=== PATIENT | female | born 1980 | race American Indian/Alaskan Native ===

== ENCOUNTER 2019-02-10 22:37 | Emergency (ER) | payer MEDICARE ==
[2019-02-10 22:47] VITALS: BP 121/103
[2019-02-10 23:10] LABS: Hematocrit 39.9 % (30.3-42.9); Hemoglobin 13.3 gm/dl (10.1-14.3); Mean Corpuscular HGB Conc 33 % (30-34); Mean Corpuscular Volume 99 fl (79-97); Platelet Count 200 K/mm3 (140-440); Red Blood Count 4.05 M/mm3 (3.65-5.03); Red Cell Distribution Width 15.3 % (13.2-15.2)
[2019-02-10 23:30] LABS: Alanine Aminotransferase 28 units/L (7-56); Albumin 4.5 g/dL (3.9-5); BUN/Creatinine Ratio 13; Blood Urea Nitrogen 9 mg/dL (7-17); Calcium 9.6 mg/dL (8.4-10.2); Hemolysis Index 9
[2019-02-11 01:32] LABS: RBC Morphology Normal; Total Cells Counted 100
[2019-02-11 01:36] LABS: Bacteria,Urine 1+ /HPF (Negative); Bilirubin,Urine NEG (Negative); Blood,Urine NEG (Negative); Color,Urine Yellow (Yellow); Protein,Urine <15 mg/dL mg/dL (Negative); Urobilinogen,Urine < 2.0 mg/dL (<2.0)
--- NOTE | 2019-02-11 02:35 | Cat Scan Report ---
CT abdomen pelvis wo con INDICATION / CLINICAL INFORMATION: Lower abdominal pain and nausea. Bilateral flank pain.. TECHNIQUE: All CT scans at this location are performed using CT dose reduction for ALARA by means of automated e xposure control. COMPARISON: None available. FINDINGS: ABDOMEN: The stomach is mildly distended and fluid-filled. There is a 1.7 cm simple cyst-appearing le tim in the right lobe of the liver. There are a couple of small accessory spleens. The gallbladder, bile ducts, pancreas, adrenal glands, and kidneys demonstrate no significant abnormality. No adenopat hy is seen. The lung bases are clear. There are bilateral breast implants. PELVIS: The uterus is enlarged and contains multiple fibroids, the largest of which measures approxim ately 6.9 cm. The ovaries are not well seen. No free fluid is identified. A normal appendix is presen t and there is no evidence of diverticulitis. The distal ureters and urinary bladder are normal. I do not identify a hernia. No acute osseous abnormality is seen area IMPRESSION: 1. Enlarged uterus containing multiple fibroids. 2. The stomach is mildly distended and filled with fluid, probably related to recent fluid intake. 3. Small simple cyst-appearing lesion in the liver. 4. No evidence of urinary tract calculus or hydronephrosis. Signer Name: Edwin Edmonds MD Signed: 02/11/2019 2:30 AM Workstation Name: [id number]
--- NOTE | 2019-02-11 02:35 | Emergency Department Report ---
ED Abdominal Pain HPI - General Chief Complaint: Abdominal Pain Stated Complaint: SHOOTING PAIN IN ABD AND SIDES Time Seen by Provider: 02/11/19 01:29 Source: patient Mode of arrival: Ambulatory Limitations: No Limitations - History of Present Illness Initial Comments: Patient is a 38-year-old female presents the emergency room with complaints of right flank pain and suprapubic abdominal pain that began 2 weeks ago. States she also has vaginal discharge and vaginal irritation. She denies any vomiting, diarrhea, fever, urinary symptoms. She denies any past medical history or allergies to medications. Last mental cycle was February 04. - Related Data Previous Rx's Medication Instructions Recorded Last Taken Type metroNIDAZOLE [Flagyl] 500 mg PO BID 7 Days #14 tab 02/11/19 Unknown Rx Allergies Allergy/AdvReac Type Severity Reaction Status Date / Time No Known Allergies Allergy Unverified 02/10/19 22:42 ED Review of Systems ROS: Stated complaint: SHOOTING PAIN IN ABD AND SIDES Other details as noted in HPI Comment: All other systems reviewed and negative ED Past Medical Hx - Past Medical History Previous Medical History?: No - Surgical History Past Surgical History?: No - Social History Smoking Status: Current Every Day Smoker Substance Use Type: Marijuana - Medications Home Medications: Home Medications Medication Instructions Recorded Confirmed Last Taken Type metroNIDAZOLE [Flagyl] 500 mg PO BID 7 Days #14 tab 02/11/19 Unknown Rx ED Physical Exam - General Limitations: No Limitations General appearance: alert, in no apparent distress - Head Head exam: Present: atraumatic, normocephalic - ENT ENT exam: Present: mucous membranes moist - Respiratory Respiratory exam: Present: normal lung sounds bilaterally. Absent: respiratory distress, wheezes, rales, rhonchi, stridor, chest wall tenderness, accessory muscle use, decreased breath sounds, prolonged expiratory - Cardiovascular Cardiovascular Exam: Present: regular rate, normal rhythm, normal heart sounds. Absent: systolic murmur, diastolic murmur, rubs, gallop - GI/Abdominal GI/Abdominal exam: Present: soft, normal bowel sounds. Absent: distended, tenderness, guarding, rebound, rigid - External exam: Present: normal external exam. Absent: erythema, swelling, lesions, lacerations, ecchymosis, bleeding Speculum exam: Present: vaginal discharge (clear), cervical discharge (clear), other (tour bus driver/guide: Jui-carrie, RN). Absent: vaginal bleeding, foreign body, tissue Bi-manual exam: Present: normal bi-manual exam, uterine enlargement. Absent: cervical motion tendernes, adnexal tenderness, adnexal mass, uterine tenderness - Back Exam Back exam: Present: CVA tenderness (R) (mild) - Neurological Exam Neurological exam: Present: alert, oriented X3 - Psychiatric Psychiatric exam: Present: normal affect, normal mood - Skin Skin exam: Present: warm, dry, intact ED Course Vital Signs 02/10/19 02/11/19 22:44 03:40 Temperature 98.4 F Pulse Rate 61 77 Respiratory 12 16 Rate Blood Pressure 121/103 O2 Sat by Pulse 99 99 Oximetry ED Medical Decision Making - Lab Data Result diagrams: 02/10/19 22:59 02/10/19 22:59 Lab Results 02/10/19 02/10/19 02/10/19 Range/Units 22:59 22:59 22:59 WBC 3.2 L (4.5-11.0) K/mm3 RBC 4.05 (3.65-5.03) M/mm3 Hgb 13.3 (10.1-14.3) gm/dl Hct 39.9 (30.3-42.9) % MCV 99 H (79-97) fl MCH 33 H (28-32) pg MCHC 33 (30-34) % RDW 15.3 H (13.2-15.2) % Plt Count 200 (140-440) K/mm3 Add Manual Diff Complete Total Counted 100 Seg Neutrophils % [place] Seg Neuts % (Manual) 33.0 L (40.0-70.0) % Band Neutrophils % 0 % Lymphocytes % (Manual) 53.0 H (13.4-35.0) % Reactive Lymphs % (Man) 0 % Monocytes % (Manual) 11.0 H (0.0-7.3) % Eosinophils % (Manual) 2.0 (0.0-4.3) % Basophils % (Manual) 1.0 (0.0-1.8) % Metamyelocytes % 0 % Myelocytes % 0 % Promyelocytes % 0 % Blast Cells % 0 % Nucleated RBC % Not Reportable Seg Neutrophils # Man 1.1 L (1.8-7.7) K/mm3 Band Neutrophils # 0.0 K/mm3 Lymphocytes # (Manual) 1.7 (1.2-5.4) K/mm3 Abs React Lymphs (Man) 0.0 K/mm3 Monocytes # (Manual) 0.4 (0.0-0.8) K/mm3 Eosinophils # (Manual) 0.1 (0.0-0.4) K/mm3 Basophils # (Manual) 0.0 (0.0-0.1) K/mm3 Metamyelocytes # 0.0 K/mm3 Myelocytes # 0.0 K/mm3 Promyelocytes # 0.0 K/mm3 Blast Cells # 0.0 K/mm3 WBC Morphology Not Reportable Hypersegmented Neuts Not Reportable Hyposegmented Neuts Not Reportable Hypogranular Neuts Not Reportable Smudge Cells Not Reportable Toxic Granulation Not Reportable Toxic Vacuolation Not Reportable Dohle Bodies Not Reportable Pelger-Huet Anomaly Not Reportable Ken Rods Not Reportable Platelet Estimate Not Reportable Clumped Platelets Not Reportable Plt Clumps, EDTA Not Reportable Large Platelets Not Reportable Giant Platelets Not Reportable Platelet Satelliting Not Reportable Plt Morphology Comment Not Reportable RBC Morphology Normal Dimorphic RBCs Not Reportable Polychromasia Not Reportable Hypochromasia Not Reportable Poikilocytosis Not Reportable Anisocytosis Not Reportable Microcytosis Not Reportable Macrocytosis Not Reportable Spherocytes Not Reportable Pappenheimer Bodies Not Reportable Sickle Cells Not Reportable Target Cells Not Reportable Tear Drop Cells Not Reportable Ovalocytes Not Reportable Helmet Cells Not Reportable Kang-Laplace Bodies Not Reportable Vanderpool Rings Not Reportable Norborne Cells Not Reportable Bite Cells Not Reportable Crenated Cell Not Reportable Elliptocytes Not Reportable Acanthocytes (Spur) Not Reportable Rouleaux Not Reportable Hemoglobin C Crystals Not Reportable Schistocytes Not Reportable Malaria parasites Not Reportable Guicho Bodies Not Reportable Hem Pathologist Commnt No Sodium 141 (137-145) mmol/L Potassium 4.1 (3.6-5.0) mmol/L Chloride 100.0 (98-107) mmol/L Carbon Dioxide 27 (22-30) mmol/L Anion Gap 18 mmol/L BUN 9 (7-17) mg/dL Creatinine 0.7 (0.7-1.2) mg/dL Estimated GFR > 60 ml/min BUN/Creatinine Ratio 13 % Glucose 94 (65-100) mg/dL Calcium 9.6 (8.4-10.2) mg/dL Total Bilirubin 0.50 (0.1-1.2) mg/dL AST 45 H (5-40) units/L ALT 28 (7-56) units/L Alkaline Phosphatase 39 (35-129) units/L Total Protein 7.7 (6.3-8.2) g/dL Albumin 4.5 (3.9-5) g/dL Albumin/Globulin Ratio 1.4 % HCG, Qual Negative (Negative) Urine Color (Yellow) Urine Turbidity (Clear) Urine pH (5.0-7.0) Ur Specific [place] (1.003-1.030) Urine Protein (Negative) mg/dL Urine Glucose (UA) (Negative) mg/dL Urine Ketones (Negative) mg/dL Urine Blood (Negative) Urine Nitrite (Negative) Urine Bilirubin (Negative) Urine Urobilinogen (<2.0) mg/dL Ur Leukocyte Esterase (Negative) Urine WBC (Auto) (0.0-6.0) /HPF Urine RBC (Auto) (0.0-6.0) /HPF U Epithel Cells (Auto) (0-13.0) /HPF Urine Bacteria (Auto) (Negative) /HPF 02/10/19 Range/Units Unknown WBC (4.5-11.0) K/mm3 RBC (3.65-5.03) M/mm3 Hgb (10.1-14.3) gm/dl Hct (30.3-42.9) % MCV (79-97) fl MCH (28-32) pg MCHC (30-34) % RDW (13.2-15.2) % Plt Count (140-440) K/mm3 Add Manual Diff Total Counted Seg Neutrophils % Seg Neuts % (Manual) (40.0-70.0) % Band Neutrophils % % Lymphocytes % (Manual) (13.4-35.0) % Reactive Lymphs % (Man) % Monocytes % (Manual) (0.0-7.3) % Eosinophils % (Manual) (0.0-4.3) % Basophils % (Manual) (0.0-1.8) % Metamyelocytes % % Myelocytes % % Promyelocytes % % Blast Cells % % Nucleated RBC % Seg Neutrophils # Man (1.8-7.7) K/mm3 Band Neutrophils # K/mm3 Lymphocytes # (Manual) (1.2-5.4) K/mm3 Abs React Lymphs (Man) K/mm3 Monocytes # (Manual) (0.0-0.8) K/mm3 Eosinophils # (Manual) (0.0-0.4) K/mm3 Basophils # (Manual) (0.0-0.1) K/mm3 Metamyelocytes # K/mm3 Myelocytes # K/mm3 Promyelocytes # K/mm3 Blast Cells # K/mm3 WBC Morphology Hypersegmented Neuts Hyposegmented Neuts Hypogranular Neuts Smudge Cells Toxic Granulation Toxic Vacuolation Dohle Bodies Pelger-Huet Anomaly Ken Rods Platelet Estimate Clumped Platelets Plt Clumps, EDTA Large Platelets Giant Platelets Platelet Satelliting Plt Morphology Comment RBC Morphology Dimorphic RBCs Polychromasia Hypochromasia Poikilocytosis Anisocytosis Microcytosis Macrocytosis Spherocytes Pappenheimer Bodies Sickle Cells Target Cells Tear Drop Cells Ovalocytes Helmet Cells Kang-Laplace Bodies Vander[place] Rings Ez Cells Bite Cells Crenated Cell Elliptocytes Acanthocytes (Spur) Rouleaux Hemoglobin C Crystals Schistocytes Malaria parasites Guicho Bodies Hem Pathologist Commnt Sodium (137-145) mmol/L Potassium (3.6-5.0) mmol/L Chloride (98-107) mmol/L Carbon Dioxide (22-30) mmol/L Anion Gap mmol/L BUN (7-17) mg/dL Creatinine (0.7-1.2) mg/dL Estimated GFR ml/min BUN/Creatinine Ratio % Glucose (65-100) mg/dL Calcium (8.4-10.2) mg/dL Total Bilirubin (0.1-1.2) mg/dL AST (5-40) units/L ALT (7-56) units/L Alkaline Phosphatase (35-129) units/L Total Protein (6.3-8.2) g/dL Albumin (3.9-5) g/dL Albumin/Globulin Ratio % HCG, Qual (Negative) Urine Color Yellow (Yellow) Urine Turbidity Clear (Clear) Urine pH 6.0 (5.0-7.0) Ur Specific [place] 1.008 (1.003-1.030) Urine Protein <15 mg/dl (Negative) mg/dL Urine Glucose (UA) Neg (Negative) mg/dL Urine Ketones Tr (Negative) mg/dL Urine Blood Neg (Negative) Urine Nitrite Neg (Negative) Urine Bilirubin Neg (Negative) Urine Urobilinogen < 2.0 (<2.0) mg/dL Ur Leukocyte Esterase Tr (Negative) Urine WBC (Auto) 1.0 (0.0-6.0) /HPF Urine RBC (Auto) 1.0 (0.0-6.0) /HPF U Epithel Cells (Auto) 2.0 (0-13.0) /HPF Urine Bacteria (Auto) 1+ (Negative) /HPF - Radiology Data Radiology results: report reviewed CT abdomen pelvis wo con INDICATION / CLINICAL INFORMATION: Lower abdominal pain and nausea. Bilateral flank pain.. TECHNIQUE: All CT scans at this location are performed using CT dose reduction for ALARA by means of automated exposure control. COMPARISON: None available. FINDINGS: ABDOMEN: The stomach is mildly distended and fluid-filled. There is a 1.7 cm simple cyst-appearing lesion in the right lobe of the liver. There are a couple of small accessory spleens. The gallbladder, bile ducts, pancreas, adrenal glands, and kidneys demonstrate no significant abnormality. No adenopathy is seen. The lung bases are clear. There are bilateral breast implants. PELVIS: The uterus is enlarged and contains multiple fibroids, the largest of which measures approximately 6.9 cm. The ovaries are not well seen. No free fluid is identified. A normal appendix is present and there is no evidence of diverticulitis. The distal ureters and urinary bladder are normal. I do not identify a hernia. No acute osseous abnormality is seen area IMPRESSION: 1. Enlarged uterus containing multiple fibroids. 2. The stomach is mildly distended and filled with fluid, probably related to recent fluid intake. 3. Small simple cyst-appearing lesion in the liver. 4. No evidence of urinary tract calculus or hydronephrosis. Signer Name: Edwin Edmonds MD Signed: 02/11/2019 2:30 AM Workstation Name: [id number] Transcribed By: RT Dictated By: Edwin Edmonds MD Electronically Authenticated By: Edwin Edmonds MD Signed Date/Time: 02/11/19 0230 - Medical Decision Making Patient is a 38-year-old female presents the emergency room with complaints of right flank pain and suprapubic abdominal pain that began 2 weeks ago. States she also has vaginal discharge and vaginal irritation. She denies any vomiting, diarrhea, fever, urinary symptoms. She denies any past medical history or allergies to medications. Last mental cycle was February 04. no abd tenderness on exam, mild right CVAT, clear vaginal discharge on exam, no CMT/no adenxal masses, uterus feels enlarged. labs are stable. UA without evidence of UTI. CT abd/pelvis: 1. Enlarged uterus containing multiple fibroids. 2. The stomach is mildly distended and filled with fluid, probably related to recent fluid intake. 3. Small simple cyst-appearing lesion in the liver. 4. No evidence of urinary tract calculus or hydronephrosis. will have pt follow up with [facility] regarding fibroids. wet prep shows evidence of BV. G/C sent. pt given prescription for flagyl. advised pt to please take medication as prescribed to completion. Do n ot drink alcohol while taking medication. check back with medical records in one week for results of your tests to see if you need further treatment. Follow up with an [facility] in the next 2-3 days. Return to the emergency room for any new or worsening symptoms. - Differential Diagnosis UTI, nephrolithiasis, BV, STD, vaginitis, pyelonephritis Critical care attestation.: If time is entered above; I have spent that time in minutes in the direct care of this critically ill patient, excluding procedure time. ED Disposition Clinical Impression: Bacterial vaginosis, Suprapubic abdominal pain, Right flank pain Uterine fibroid Qualifiers: Uterine leiomyoma location: unspecified location Qualified Code(s): D25.9 - Leiomyoma of uterus, unspecified Disposition: DC-01 TO HOME OR SELFCARE Is pt being admited?: No Does the pt Need Aspirin: No Condition: Stable Instructions: Bacterial Vaginosis (ED), Uterine Fibroids (ED), Abdominal Pain (ED) Additional Instructions: Please take medication as prescribed to completion. Do not drink alcohol while taking medication. check back with medical records in one week for results of your tests to see if you need further treatment. Follow up with an [facility] in the next 2-3 days. Return to the emergency room for any new or worsening symptoms. Prescriptions: metroNIDAZOLE [Flagyl] 500 mg PO BID 7 Days #14 tab Referrals: [facility], MD [Referring] - 2-3 Days [facility] [Provider Group] - 2-3 Days [facility] [Provider Group] - 2-3 Days Forms: STI Treatment and Prevention Time of Disposition: 03:29 Print Language: ICELANDIC
== END 2019-02-11 03:40 | disposition home or self-care (01) ==
LOC: ED 22:37
DX: D25.9 Leiomyoma of uterus, unspecified (principal); N76.0 Acute vaginitis; B96.89 Other specified bacterial agents as the cause of diseases classified elsewhere; F17.200 Nicotine dependence, unspecified, uncomplicated; F12.10 Cannabis abuse, uncomplicated
CPT/HCPCS: 36415; 74176; 80053; 81001; 84703; 85007; 85025; 87210; 87591